=== PATIENT | male | born 1990 | race African-American/Black ===

== ENCOUNTER 2018-12-23 09:22 | Emergency (ER) | payer SELFPAY ==
[~2018-12-23] VITALS: Ht 188 cm; Wt 73.0 kg
[2018-12-23 12:26] VITALS: BP 127/63
== END 2018-12-23 12:27 | disposition home or self-care (01) ==
LOC: ER 09:58
DX: M54.5 Low back pain (principal); G89.29 Other chronic pain; R03.0 Elevated blood-pressure reading, without diagnosis of hypertension
CPT/HCPCS: 99283